=== PATIENT | male | born 1970 | race Two or more races ===

== ENCOUNTER 2017-05-24 01:25 | Emergency (ER) | payer SELFPAY ==
[~2017-05-24] VITALS: Ht 177.8 cm; Wt 90.7 kg
[2017-05-24 01:43] VITALS: BP 135/92
[2017-05-24] MEDS ORDERED: HYDROcodone-ACET 5/325MG TAB PO ONE (02:30)
[2017-05-24] MEDS ORDERED: IBUPROFEN 600 MG TAB PO ONE (05:15)
[2017-05-24] MEDS ORDERED: CYCLOBENZAPRINE HCL 10 MG TAB PO ONE (05:15)
== END 2017-05-24 06:30 | disposition home or self-care (01) ==
LOC: EDBD 01:25 → ER 01:30
DX: S16.1XXA Strain of muscle, fascia and tendon at neck level, initial encounter (principal); S96.911A Strain of unspecified muscle and tendon at ankle and foot level, right foot, initial encounter; R51 Headache; V43.52XA Car driver injured in collision with other type car in traffic accident, initial encounter; Y93.89 Activity, other specified; Y99.8 Other external cause status; Y92.410 Unspecified street and highway as the place of occurrence of the external cause
CPT/HCPCS: 70450; 72125; 73600; 99284; J7030

== ENCOUNTER 2020-07-22 01:03 | Emergency (ER) | payer MEDICAID ==
[~2020-07-22] VITALS: Ht 167.6 cm; Wt 90.7 kg
[2020-07-22 01:15] VITALS: BP 144/76
[2020-07-22] MEDS ORDERED: THIAMINE HCL 100 MG TAB PO ONE (03:00)
[2020-07-22] MEDS ORDERED: FOLIC ACID 1 MG TAB PO ONE (03:00)
== END 2020-07-22 02:48 | disposition home or self-care (01) ==
LOC: EDUNIT# 01:03 → ER 01:03 → EDBD 01:03 → ER 02:48
DX: F10.920 Alcohol use, unspecified with intoxication, uncomplicated (principal)